=== PATIENT | male | born 1975 | race Caucasian/White ===

== ENCOUNTER 2023-08-27 19:08 | Emergency (ER) | payer BC, SELFPAY ==
[2023-08-27 19:19] VITALS: BP 130/90; PULSE 108; RESP 16; TEMP 36.6; O2SAT 97
--- NOTE | 2023-08-27 19:27 | ED.GENADUL_ITS ---
Discharge Plan Disposition Patient Disposition: [facility] Condition: Stable Discharge Details Clinical Impression: Alcohol intoxication, Migraine Primary Care Provider: Tonia Cuellar ED Provider: Maura Gramajo Home Meds and New Rx's Prescriptions: No Action fluoxetine 40 mg capsule 80 mg PO DAILY Patient Comments: TAKE 2 CAPSULES BY MOUTH ONCE DAILY sumatriptan succinate 100 mg tablet 50 - 100 mg PO PRN PRN Patient Comments: TAKE 1/2 TO 1 (ONE-HALF TO ONE) TABLET BY MOUTH AT START OF MIGRAINE, MAY REPEAT IN 2 HOURS NEEDED gabapentin 400 mg capsule 600 mg PO BID melatonin 3 mg tablet 10 mg PO QHS Patient Comments: take 2 tablets by mouth at bedtime tamsulosin 0.4 mg capsule 0.4 mg PO DAILY Patient Comments: TAKE 1 CAPSULE BY MOUTH ONCE DAILY esomeprazole magnesium 40 mg capsule,delayed release(DR/EC) 40 mg PO DAILY Patient Comments: take 1 capsule by mouth every morning candesartan 16 mg tablet 16 mg PO DAILY Patient Comments: TAKE 1 TABLET BY MOUTH ONCE DAILY albuterol sulfate 90 mcg/actuation HFA aerosol inhaler 2 inh INHALATION PRN PRN Patient Comments: inhale 2 puffs by mouth and INTO THE LUNGS every 4 hours if needed prazosin 2 mg capsule 4 mg PO QHS buspirone 15 mg tablet 15 mg PO BID topiramate 50 mg tablet 50 mg PO QHS Patient Comments: take 1 tablet by mouth nightly mirtazapine 7.5 mg tablet 15 mg PO QHS Patient Comments: TAKE 2 TABLETS BY MOUTH ONCE DAILY AT BEDTIME Discharge Instructions Instructions: Alcohol Intoxication (ED), General Headache (ED) Additional Instructions: At this time you have been medically cleared, please [facility] Follow up with primary care provider in 3-5 days. Return to ED sooner if any worsening or concerns. Increase oral fluids. Please take Tylenol or Ibuprofen with food every 4-6 hours as needed for pain and swelling. Referrals: [facility] [Outside] [facility] [Outside] Medical Decision Making Patient reports 3 beers and 1/2 fifth of whiskey, concerned about interaction with medications. Patient presents here with Stella from any [facility] and police after drinking alcohol today. Does have a history of alcohol abuse. Complaining of 10 out of 10 headache which she has not taken anything for. He reports that this feels like a typical migraine does have a history of migraines. Denies any head injuries. No focal neurodeficits noted upon initial exam. 191: Spoke with Юлия with [facility] patient here for a medical clearance eval and discharge to [facility] for [facility] placement. Pateint blew a [id number] and is c/o 09/10 headache. Has been evaluated by [facility] already and is here only for medical clearance. Patient medically cleared has recieved 1 liter NS and Ibuprofen. Discharged to [facility] and given DC instructions. This text was generated using [employer] dictation system, please disregard any oddities of phrase or misspellings. Lab Data Lab results reviewed: Yes I reviewed the patient's lab results. Labs: Laboratory Tests Range/Units 08/27/23 08/27/23 08/27/23 19:30 19:30 19:30 WBC (4.4-10.8) 10^3/uL 7.75 RBC (4.36-5.78) 10^6/uL 5.03 Hgb (13.5-17.5) g/dL 15.4 Hct (40.0-50.0) % 44.6 MCV (80-95) fL 89 MCH (27.0-33.0) pg 30.6 MCHC (32.0-36.0) % 34.5 RDW (11.8-14.1) % 13.3 Plt Count (130-400) 10^3/uL 325 MPV (8.0-11.0) fL 10.0 Immature Gran % 0.4 Neutrophils % 60.6 Lymphocytes % 33.2 Monocytes % 5.2 Eosinophils % 0.1 Basophils % 0.5 Nucleated RBC % (0.0-0.3) % 0.0 Absolute Neutrophils (1.2-6.7) 10^3/uL 4.70 Absolute Lymphocytes (1.2-3.4) 10^3/uL 2.57 Absolute Monocytes (0.1-0.8) 10^3/uL 0.40 Absolute Eosinophils (0.0-0.7) 10^3/uL 0.01 Absolute Basophils (0.0-0.2) 10^3/uL 0.04 Sodium (136-145) mmol/L 140 Potassium (3.5-5.1) mmol/L 3.4 L Chloride (98-107) mmol/L 104 Carbon Dioxide (21.0-32.0) mmol/L 18.1 L Anion Gap (3-11) mmol/L 17.9 H BUN (7-18) mg/dL 6 L Creatinine (0.70-1.30) mg/dL 1.0 Est GFR (CKD-EPI 2020) (mL/min/1.73m2) 91.69 Glucose (74-106) mg/dL 107 H Calcium (8.5-10.1) mg/dL 9.5 Total Bilirubin (0.2-1.0) mg/dL 0.2 AST (15-37) U/L 36 ALT (16-63) U/L 65 H Alkaline Phosphatase (46-116) U/L 75 Total Protein (6.4-8.2) g/dL 8.7 H Albumin (3.4-5.0) g/dL 4.6 Urine Opiates Screen (Negative) Negative Urine Methadone Screen (Negative) Negative Ur Barbiturates Screen (Negative) Positive A Ur Tricyclics Screen (Negative) Negative Ur Amphetamines Screen (Negative) Negative U Benzodiazepines Scrn (Negative) Negative Urine Cocaine Screen (Negative) Negative Ur THC Screen (Negative) Negative Ethyl Alcohol (<10) mg/dL 214.4 H HPI General Mode of arrival: ambulatory . Date/Time Provider Initiated Documentation: 08/27/23 19:10 . Limitations to Documentation: no limitations . Information obtained by: patient, police and RN notes reviewed . HPI Narrative: Patient reports 3 beers and 1/2 fifth of whiskey, concerned about interaction with medications. Patient presents here with Stella from [facility] and police after drinking alcohol today. Does have a history of alcohol abuse. Complaining of 10 out of 10 headache which she has not taken anything for. He reports that this feels like a typical migraine does have a history of migraines. Denies any head injuries. No focal neurodeficits noted upon initial exam. Related Data Home Medications Medication Instructions Recorded Confirmed albuterol sulfate 90 mcg/actuation 2 inh inhalation PRN PRN 08/27/23 08/27/23 aerosol inhaler buspirone 15 mg tablet 15 mg PO BID 08/27/23 08/27/23 candesartan 16 mg tablet 16 mg PO DAILY 08/27/23 08/27/23 esomeprazole magnesium 40 mg 40 mg PO DAILY 08/27/23 08/27/23 capsule,delayed release fluoxetine 40 mg capsule 80 mg PO DAILY 08/27/23 08/27/23 gabapentin 400 mg capsule 600 mg PO BID 08/27/23 08/27/23 melatonin 3 mg tablet 10 mg PO QHS 08/27/23 08/27/23 mirtazapine 7.5 mg tablet 15 mg PO QHS 08/27/23 08/27/23 prazosin 2 mg capsule 4 mg PO QHS 08/27/23 08/27/23 sumatriptan succinate 100 mg tablet 50 - 100 mg PO PRN PRN 08/27/23 08/27/23 tamsulosin 0.4 mg capsule 0.4 mg PO DAILY 08/27/23 08/27/23 topiramate 50 mg tablet 50 mg PO QHS 08/27/23 08/27/23 Allergies Allergy/AdvReac Type Severity Reaction Status Date / Time No Known Allergies Allergy Verified 08/27/23 19:38 General Stated Complaint: Headache GABY: 4 Review of Systems All systems reviewed & are unremarkable except as noted in HPI and below Constitutional Constitutional: Reports as per HPI and Reports headache(s) ENT Ears, Nose, Mouth, and Throat: Reports headache(s) Neurologic Neurologic: Reports headache(s) PFSH All Active Problems (Updated 08/27/23 @ 20:45 by Maura Gramajo NP) Alcohol intoxication (Acute) Migraine (Chronic) Social History Smoking risk assessment performed?: No Alcohol Intake: current Alcohol Intake frequency: 3 or more drinks per day Alcohol type: beer Drug use: Occasionally Substance use type: marijuana Do you feel safe at home: Yes Do you feel safe in your relationship?: Yes Additional Social history: 3 beers and half a fifth of whiskey today. Exam Narrative Exam Narrative: Constitutional: Alert and oriented x3. Appears stated age. Normal body habitus. Head: Normocephalic, no trauma. Eyes: Pupils PERRL, Red reflex noted, EOM's intact. Eyelids symmetrical without lesions, discharge, or swelling. ENT: Bilateral TM's WNL, External ear normal to inspection, no mastoid TTP, swelling, or erythema, Nasal turbinates WNL, no nasal discharge. Normal dentitio n, Posterior pharynx WNL, no exudate. Chest: RRR, Normal S1, S2, distal pulses intact. Resp: Lungs clear to auscultation bilaterally, no wheezes, rales, or rhonchi. Abdomen: Soft, non-distended, Normoactive bowel sounds all 4 quads. Musculoskeletal: Normal gait, 5/5 strength to all four extremities. Skin: No suspicious rashes or lesions. Capillary refill less than 2 sec. Neurologic: Cranial nerves II-XII intact. Alert and oriented x 3. Motor: No deficits noted. Sensory: Intact bilaterally all 4 extremities. Reflexes: DTR's intact bilaterally.. Hematologic/Lymphatic: No ecchymosis, no lymphadenopathy. Course Vital Signs Vital signs: Vital Signs Temperature 36.6 C 08/27/23 19:19 Pulse 108 H 08/27/23 19:19 Respiratory Rate 16 08/27/23 19:19 Blood Pressure 130/90 08/27/23 19:19 Pulse Oximetry 97 08/27/23 19:19 Temperature 36.6 C 08/27/23 19:19 Temperature Source Tympanic 08/27/23 19:19 Pulse 108 H 08/27/23 19:19 Respiratory Rate 16 08/27/23 19:19 Blood Pressure 130/90 08/27/23 19:19 Blood Pressure Position Sitting 08/27/23 19:19 Pulse Oximetry 97 08/27/23 19:19 Oxygen Delivery Method Room Air 08/27/23 19:19 Oxygen Flow Rate 0 08/27/23 19:19 Pain Level 10 08/27/23 19:19
[2023-08-27 19:53] LABS: Abs Immature Grans 0.03 10^3/uL (0.0-0.06); Absolute Basophil Count 0.04 10^3/uL (0.0-0.2); Absolute Eosinophil Count 0.01 10^3/uL (0.0-0.7); Absolute Lymphocyte Count 2.57 10^3/uL (1.2-3.4); Basophils % 0.5; Eosinophils % 0.1; HCT 44.6 % (40.0-50.0); HGB 15.4 g/dL (13.5-17.5); Immature Grans % 0.4; Lymphocytes % 33.2; MCH 30.6 pg (27.0-33.0); MCHC 34.5 % (32.0-36.0); MCV 89 fL (80-95); Monocytes % 5.2; Neutrophils % 60.6; Platelet Count 325 10^3/uL (130-400); RBC 5.03 10^6/uL (4.36-5.78); RDW 13.3 % (11.8-14.1); RDW-SD 43.7 fL; WBC 7.75 10^3/uL (4.4-10.8)
[2023-08-27] MEDS: Ibuprofen 600 MG TAB PO (20:09)
[2023-08-27] MEDS: Normal Saline 1,000 ML 1000 ML IV (20:09)
[2023-08-27 20:13] LABS: ALT 65 U/L (16-63); AST 36 U/L (15-37); Albumin 4.6 g/dL (3.4-5.0); Alkaline Phosphatase 75 U/L (46-116); Anion Gap 17.9 mmol/L (3-11); BUN 6 mg/dL (7-18); Bilirubin, Total 0.2 mg/dL (0.2-1.0); CO2 18.1 mmol/L (21.0-32.0); Calcium 9.5 mg/dL (8.5-10.1); Chloride 104 mmol/L (98-107); ETHANOL BLOOD 214.4 mg/dL (<10); Estimated GFR 91.69 (mL/min/1.73m2); Glucose 107 mg/dL (74-106); Potassium 3.4 mmol/L (3.5-5.1); Sodium 140 mmol/L (136-145); Total Protein 8.7 g/dL (6.4-8.2)
[2023-08-27 20:16] LABS: *AMPHETAMINES SCREEN URINE Negative (Negative); *BARBITURATES SCREEN URINE Positive (Negative); *BENZODIAZEPINES SCREEN URINE Negative (Negative); Cannabinoids THC Negative (Negative); Cocaine Screen,Urine Negative (Negative); METHADONE URINE SCREEN Negative (Negative); OPIATES URINE SCREEN Negative (Negative)
[2023-08-27 20:18] LABS: Tricyclic Antidepressants Negative (Negative)
[2023-08-27 20:55] VITALS: BP 112/77; PULSE 81; RESP 16; TEMP 36.6; O2SAT 98
== END 2023-08-27 21:37 ==
PROVIDERS: Emergency Provider Registered Nurse Emergency; PCP Obstetrics & Gynecology Gynecology
DX: F10.220 Alcohol dependence with intoxication, uncomplicated (principal); G43.909 Migraine, unspecified, not intractable, without status migrainosus; Y90.7 Blood alcohol level of 200-239 mg/100 ml
CPT/HCPCS: 80053; 80307; 96360; 99283; 80320; 85025